=== PATIENT | male | born 1995 | race Caucasian/White ===

== ENCOUNTER 2021-06-18 17:00 | Emergency (ER) | payer OTHER, SELFPAY ==
--- NOTE | ~2021-06-18 | XR_ITS ---
XR abdomen/kub 1V DATE: 06/18/2021 17:55 INDICATION: Costovertebral angle tenderness. Low back pain. TECHNIQUE: AP projection, 2 views COMPARISON: None FINDINGS: No visceromegaly is identified. No abnormal calcification including any apparent urinary tr act calcification is noted. The psoas shadows are intact. There is a prominent amount fecal material in the right colon and sigmoid colon and rectum. No bowel obstruction. IMPRESSION: Nonspecific abdomen; no urinary tract calcification is detected Reviewed, dictated and finalized at [facility]. Reviewed, dictated and finalized at location [facility].
[2021-06-18 17:10] VITALS: BP 157/86; PULSE 80; RESP 20; TEMP 37; O2SAT 100
--- NOTE | 2021-06-18 17:28 | WPDEDEXPGENP ---
HPI - General Ped General Chief complaint: Urogenital-Male Stated complaint: POS UTI Time Seen by Provider: 06/18/21 17:28 Source: patient Mode of arrival: ambulatory Limitations: no limitations Nursing Documentation: reviewed/agree History of Present Illness HPI narrative: 25-year-old male patient presents to the [facility] with complaints of low back pain that started last night. Patient also states he has noticed some foul-smelling urine when he does urinate. Denies any pain with urination. Denies any frequency. Patient does not have any concerns for STD due to that he is in a monogamous relationship with his . Patient denies any blood or discharge coming from the penis. Denies any scrotal pain. Related Data Home Medications Medication Instructions Recorded Confirmed duloxetine 60 mg PO DAILY 06/18/21 06/18/21 fexofenadine [Monserrat] 60 mg PO Q12H 06/18/21 06/18/21 Allergies Allergy/AdvReac Type Severity Reaction Status Date / Time No Known Allergies Allergy Verified 06/18/21 17:22 Pediatric Review of Systems Review of Systems: CONSTITUTIONAL: Denies fever, chills, or sweats. EYES: Denies visual changes, redness, or discharge. ENT: Denies rhinorrhea, congestion, sore throat, or otalgia. CARDIOVASCULAR: Denies chest pain, palpitations, or edema. RESPIRATORY: Denies cough or dyspnea. Positive odor to urine GASTROINTESTINAL: Denies abdominal pain, nausea, vomiting, or diarrhea. GENITOURINARY: Denies dysuria or hematuria. SKIN: Denies rash or itching. MUSCULOSKELETAL: Positive low back pain, denies joint pain, or myalgia. NEUROLOGIC: Denies headache, numbness, or weakness. PSYCHIATRIC: Denies anxiety or depression. [facility] Past Medical History Medical History (Updated 06/18/21 @ 18:15 by RICARDA Corbin) No significant past medical history Obsessive compulsive disorder Seasonal allergies Comments At the time of my signature I agree with nursing past medical history, surgical, social, and family history. There is no relevant family history pertinent to the presenting complaint. Pediatric Exam Narrative: Physical exam: GENERAL: Well-appearing, well-nourished, and in no acute distress. HEAD: Normocephalic, atraumatic. EYES: PERRLA and EOMI. ENT: Nares clear, no rhinorrhea or epistaxis. Mucous membranes moist. NECK: Supple. No lymphadenopathy CHEST: Clear to auscultation. No respiratory distress. HEART: Regular rate and rhythm. No murmur heard. Normal peripheral pulses. ABDOMEN: Soft, nontender, nondistended, normal active bowel sounds. Bilateral CVA tenderness more so on the right than the left EXTREMITIES: Normal range of motion. No edema. SKIN: Warm, dry, no rash. NEURO: No focal deficits. Alert and oriented x3. Course Reevaluation(s) Reevaluation #1: Reevaluated patient notified him that his urine was pretty unremarkable and his x-ray was negative for any obvious kidney stones. Discussed with patient that it does appear that he is got some constipation which we will go ahead and treat him for today. Discussed with him that we will send the urine off for culture and if the culture comes back showing anything concerning we will give him a call otherwise follow-up with his primary doctor if his symptoms continue to worsen. Patient verbalized understanding denies any other questions or concerns at this time. Date: 06/18/21 Time: 18:18 Vital Signs Vital signs: Vital Signs Temperature 37.0 C 06/18/21 17:10 Pulse Rate 80 06/18/21 17:10 Respiratory Rate 20 06/18/21 17:10 Blood Pressure 157/86 H 06/18/21 17:10 Pulse Oximetry 100 06/18/21 17:10 Temperature 37.0 C 06/18/21 17:10 Pulse Rate 80 06/18/21 17:10 Respiratory Rate 20 06/18/21 17:10 Blood Pressure 157/86 H 06/18/21 17:10 Pulse Oximetry 100 06/18/21 17:10 Vital signs reviewed The patient has been informed that they may have pre-hypertension or Hypertension based on a BP reading in the department. I recomme
== END 2021-06-18 18:20 | disposition home or self-care (01) ==
PROVIDERS: Emergency Provider Nurse Practitioner Family; PCP Family Medicine
DX: K59.00 Constipation, unspecified (principal); R82.90 Unspecified abnormal findings in urine
CPT/HCPCS: 74018; 81003; 87086; 99213; G0463

== ENCOUNTER 2024-03-12 19:04 | Emergency (ER) | payer BC, SELFPAY ==
--- NOTE | 2024-03-12 19:06 | ECG_ITS ---
Test Date: 2024-03-12 19:09:34 Measurements Intervals [place] Rate: 75 P: 34 TN: 155 QRS: -18 QRSD: 107 T: 7 QT: 343 QTc: 383 Interpretive Statements SINUS RHYTHM No previous ECG available for comparison Electronically Signed On 03-13-2024 12:39:24 CDT by Vadim Bullock M.D.
[2024-03-12 19:15] VITALS: BP 151/97; PULSE 84; RESP 19; TEMP 36.8; O2SAT 98
[2024-03-12 19:51] LABS: Basophils Absolute Auto 0.1 K/mm3 (0.0-0.1); Basophils Percent Auto 0.6 % (0.2-1.2); Eosinophils Absolute Auto 0.4 K/mm3 (0-0.3); Eosinophils Percent Auto 3.8 % (0-4.4); Hematocrit 44.1 % (42.0-52.0); Hemoglobin 15.2 g/dL (14.0-18.0); Immature Granulocyte Absolute 0.06 K/mm3 (0.00-0.031); Immature Granulocyte Percent A 0.6 % (0-0.5); Lymphocytes Absolute Auto 3.15 K/mm3 (0.9-3.2); Lymphocytes Percent Auto 30.3 % (18.3-44.2); Mean Corpuscular HGB Conc 34.5 g/dl (32-36); Mean Corpuscular Hemoglobin 29.5 pg (26-34); Mean Corpuscular Volume 85.5 fl (80-100); Mean Platelet Volume 9.6 fl (7.4-10.4); Monocytes Absolute Auto 0.7 K/mm3 (0.1-0.6); Monocytes Percent Auto 6.9 % (2.6-8.5); Neutrophils Percent Auto 57.8 % (45.5-73.1); Platelet Count Result 301 k/mm3 (150-375); Red Blood Count 5.16 M/mm3 (4.6-6.20); Red Cell Distribution Width 13.5 % (11.5-14.5); White Blood Count 10.4 K/mm3 (4.5-10.0)
[2024-03-12 20:01] LABS: Alanine Aminotransferase 86 U/L (6-50); Albumin Level 4.9 g/dL (3.5-5.1); Alkaline Phosphatase 59 U/L (38-126); Anion Gap 11 mmol/L (4-12); Aspartate Amino Transferase 61 U/L (17-59); Bilirubin,Total 0.5 mg/dL (0.2-1.3); Blood Urea Nitrogen 18 mg/dL (9-20); Calcium 9.3 mg/dL (8.4-10.2); Carbon Dioxide 24 mmol/L (22-30); Chloride 104 mmol/L (98-107); Estimated CRCL calculation 149 ml/min; Estimated Glomerular Filt Rate > 60; Glucose 116 mg/dL (65-110); Sodium 139 mmol/L (137-145)
--- NOTE | 2024-03-12 20:33 | ED.ARRPALP ---
HPI - Arrhythmia/Palpitations General Chief Complaint: Arrhythmia/Palpitations Stated Complaint: palpatations Time Seen by Provider: 03/12/24 19:19 History of Present Illness HPI narrative: Patient is a 28-year-old male who presents to the emergency department this evening complaining of palpitations which started earlier today. Patient states that throughout the day he has noticed that he has been having these palpitations intermittently, and denies any previous similar symptoms in the past. Patient denies any illicit drug use including marijuana use and denies any current tobacco use, and states that he consumes approximately 200-300 mg of caffeine per day he is currently denying any chest pain or shortness of breath but states that when he had the palpitation episode earlier today he did feel a little bit of shortness of breath. Patient admits to family history of cardiovascular disease, states that his grandfather had a triple bypass. No additional symptoms or concerns at this time. Related Data Home Medications Medication Instructions Recorded Confirmed duloxetine 60 mg capsule,delayed 60 mg PO DAILY 06/18/21 06/18/21 release fexofenadine 60 mg tablet 60 mg PO Q12H 06/18/21 06/18/21 Allergies Allergy/AdvReac Type Severity Reaction Status Date / Time No Known Allergies Allergy Verified 03/12/24 19:07 Review of Systems Review of Systems: All systems are reviewed and are negative unless stated otherwise in the HPI. [facility] Past Medical History Medical History No significant past medical history Obsessive compulsive disorder Seasonal allergies Exam Narrative: General: Alert, awake, afebrile, in no acute distress. HEENT: PERRL, no rhinorrhea, no post nasal drip, oropharynx clear. Cardiovascular: Regular rate and rhythm, no murmurs, rubs or gallops, no peripheral edema. Respiratory: Clear to auscultation bilaterally, no tachypnea, no wheezing, no rhonchi, no rubs, no respiratory distress. Abdomen: Soft, nontender, nondistended, no rebound, no guarding, no peritoneal signs. Musculoskeletal: No joint swelling or deformity, normal muscle tone. Skin: No rashes or petechia, no signs of infection. Neurological: Alert and oriented to person, place, and time. Follows all commands. No focal deficits, speech is clear and fluent. Course Vital Signs Vital signs: Vital Signs Temperature 98.2 F 03/12/24 19:15 Pulse Rate 84 03/12/24 19:15 Respiratory Rate 19 03/12/24 19:15 Blood Pressure 151/97 H 03/12/24 19:15 Pulse Oximetry 98 03/12/24 19:15 Oxygen Delivery Room Air 03/12/24 19:15 Temperature 98.2 F 03/12/24 19:15 Pulse Rate 84 03/12/24 19:15 Respiratory Rate 19 03/12/24 19:15 Blood Pressure 151/97 H 03/12/24 19:15 Pulse Oximetry 98 03/12/24 19:15 Oxygen Delivery Room Air 03/12/24 19:15 MDM - Arrhythmia/Palpitations MDM Narrative Medical decision making narrative: The patient was evaluated by myself in the emergency department. History is obtained from patient who is an independent historian and physical exam was performed. External medical records were reviewed at this time. IV was established and pertinent tests were ordered. EKG was obtained which revealed Sinus rhythm at a rate of 75. No ST changes, T wave inversions or evidence of acute ischemia. EKG was independently interpreted by me and is currently pending official cardiology read. Laboratory results obtained revealed mild transaminitis otherwise unremarkable. Differential diagnosis considerations include dehydration, electrolyte derangements and arrhythmia. Comorbidities impacting this visit include none. I have evaluated and discussed social determinants of health with the patient that could potentially impact subsequent diagnosis and treatment plans. On repeat assessment of the patient, reevaluation revealed that the patient is doi
[2024-03-12 20:55] VITALS: BP 139/91; PULSE 89; RESP 22; O2SAT 95
== END 2024-03-12 20:55 | disposition home or self-care (01) ==
PROVIDERS: Emergency Provider Emergency Medicine; PCP Family Medicine
DX: R00.2 Palpitations (principal)
CPT/HCPCS: 36415; 80053; 83735; 85025; 93005; 99283

== ENCOUNTER 2024-05-26 10:34 | Outpatient (CLI) | payer BC, SELFPAY ==
[2024-05-26 11:35] LABS: Alanine Aminotransferase 124 U/L (6-50); Albumin Level 4.8 g/dL (3.5-5.1); Alkaline Phosphatase 52 U/L (38-126); Anion Gap 12 mmol/L (4-12); Aspartate Amino Transferase 91 U/L (17-59); Bilirubin,Total 0.6 mg/dL (0.2-1.3); Blood Urea Nitrogen 14 mg/dL (9-20); Calcium 9.5 mg/dL (8.4-10.2); Carbon Dioxide 27 mmol/L (22-30); Chloride 100 mmol/L (98-107); Estimated Glomerular Filt Rate > 60; Glucose 91 mg/dL (65-110); Magnesium 2.2 mg/dL (1.6-2.3); Potassium 3.8 mmol/L (3.4-5.0); Sodium 139 mmol/L (137-145)
== END 2024-05-26 10:35 | disposition home or self-care (01) ==
LOC: ANHLAB 10:36
PROVIDERS: PCP Family Medicine; Visit Provider Internal Medicine
DX: R00.2 Palpitations (principal)
CPT/HCPCS: 36415; 80053; 83735; 84443

== ENCOUNTER 2024-11-15 17:33 | Emergency (ER) | payer BC, SELFPAY ==
--- OUTSIDE RECORDS SUMMARY | 2024-11-15 17:37 | XMS_ITS | Clinical Summary ---
Author Organization [facility] Address [address] [place] [address] Phone Care Team Providers Care Slumber Room Attendant Name Role Phone Micky Abel MD Primary Care Provider [phone] Allergies No known active allergies Medications No known medications Encounters Date Type Department Care Team Description 09/05/2024 11:32 PM [facility] - 09/06/2024 2:10 AM [facility]COM[facility] Emergency [facility] Emergency [address] [place] [address] John Palacios MD Chest pain, unspecified type Discharge Disposition: Discharged to home or Selfcare 09/05/2024 Travel from Last 3 Months Social History Tobacco Use Types Packs/Day Years Used Date Smoking Tobacco: Never Smokeless Tobacco: Never Tobacco Cessation:Counseling Given: Not Answered Alcohol Use Standard Drinks/Week Comments Yes 0 (1 standard drink = 0.6 oz pur e alcohol) rarely Sexually Active Control Partners Comments Never Sex and Gender Information Value Date Recorded Sex Assigned at Not on file Legal Sex Male 2:24 AM CDT Gender Identity Not on file Sexual Orientation Not on file Last Filed Vital Signs Vital Sign Reading Time Taken Comments Blood Pressure 123/78 09/06/2024 2:00 AM [facility] Pulse 64 09/06/2024 2:00 AM [facility] Temperature 36.4 C (97.5 F) 09/05/2024 10:55 PM [facility] Respiratory Rate 15 09/06/2024 2:00 AM [facility] Oxygen Saturation 96% 09/06/2024 2:00 AM [facility] Inhaled Oxygen Concentration - - Weight 127 kg (280 lb) 09/05/2024 10:55 PM [facility] Height 180.3 cm (5' 11 ) 09/05/2024 10:55 PM [facility] Body Mass Index 39.05 09/05/2024 10:55 PM [facility] Plan of Treatment Health Maintenance Due Date Last Done Comments Hepatitis C Virus (HCV) Screening 1994 Hepatitis B Immunization (1 of 3 - 19+ 3-dose series) 2013 Influenza Immunization (#1) 06/01/2024/12/2022, 07/22/2019, 06/20/2018 SARS-COV-2 Immunization ( - season) 2024 02/04/2021 Respiratory Syncytial Virus (RSV) Immunization (Adult) (1 - 1-dose 75+ series) 2069 TdaP Immunization Completed 07/21/2019 Meningococcal Immunization (ACWY) Aged Out No longer eligible b ased on patient's age to complete this topic Pneumococcal Immunization Combined Aged Out No longer eligible b ased on patient's age to complete this topic Rotavirus Immunization Aged Out No lo nger eligible based on patient's age to complete this topic Procedures Procedure Name Priority Date/Time Associated Diagnosis Comments XR CHEST 2 VIEWS STAT 09/05/2024 11:3 4 PM [facility] CBC WITH AUTO DIFFERENTIAL STAT 09/05/2024 11:03 PM [facility] TROPONIN I, HIGH SENSITIVITY (HSTRP) STAT 09/05/2024 11:03 PM [facility] CMP (COMPREHENSIVE METABOLIC PANEL) STAT 09/05/2024 11:03 PM [facility] COMPLETE BLOOD COUNT (CBC) WITH DIFF STAT 09/05/2024 11:03 PM [facility] EKG 12 LEAD STAT 09/05/2024 10:57 PM [facility]COM[facility] from Last 3 Months Results * XR CHEST 2 VIEWS (09/05/2024 11:34 PM [facility]COM[facility]) Anatomical Region Laterality Modality Chest N/A Digital Radiogra phy 09/05/2024 11:5 9 PM [facility] Impressions 09/06/2024 12:18 AM [facility] IMPRESSION: Unremarkable chest radiographs. Narrative 09/06/2024 12:18 AM [facility] EXAM DESCRIPTION: XR CHEST 2 VIEWS REASON FOR STUDY: Chest pain TECHNIQUE: Frontal and lateral views of the chest. COMPARISON: None FINDINGS: LUNGS AND PLEURA: No focal airspace opacity, pleural effusion, or pneumothorax identified. HEART/MEDIASTINUM: Trachea midline. Cardiac silhouette normal in size. Mediastinal contours appear normal. BONES: Unremarkable. CHEST WALL: Unremarkable. UPPER ABDOMEN: Unremarkable. THIS IS AN ELECTRONICALLY VERIFIED FINAL REPORT 09/05/2024 11:59 PM - Electronically signed by Hasmukh Tran M.D. AR: FEI Report ID: [id number] Reading Location: [id number] Procedure Note Hasmukh Tran MD - 09/06/2024 EXAM DESCRIPTION: XR CHEST 2 VIEWS REASON FOR STUDY: Chest pain TECHNIQUE: Frontal and lateral views of the chest. COMPARISON: None FINDINGS: LUNGS AND PLEURA: No focal airspace opacity, pleural effusion, or pneumothorax identified. HEART/MEDIASTINUM: Trachea midline. Cardiac silhouette normal in size. Mediastinal contours appear normal. BONES: Unremarkable. CHEST WALL: Unremarkable. UPPER ABDOMEN: Unremarkable. THIS IS AN ELECTRONICALLY VERIFIED FINAL REPORT 09/05/2024 11:59 PM - Electronically signed by Hasmukh Tran M.D. AR: FEI Report ID: [id number] Reading Location: [id number] IMPRESSION: Unremarkable chest radiographs. us John Palacios MD [facility] ORDERABLES Final Result * TROPONIN I, HIGH SENSITIVITY (HSTRP) (09/05/2024 11:03 PM [facility]) TROPONIN I, HIGH SENSITIVITY- CYR <3 <=35 ng/L 09/05/2024 11:38 PM [facility] Comment: High-sensitivity troponin I results are reported in ng/L making the result appear to be 1,000 times higher than the contemporary troponin I value which is reported in ng/ml. Results from Amanda Huff [facility]. Blood Venipuncture / Unknown 09/05/2024 11:03 PM [facility] 09/05/2024 11:09 PM [facility] John Palacios MD CHEMISTRY ORDERABLES Final Result [facility] [address] [place] [address] * (ABNORMAL) CBC with Auto Differential (09/05/2024 11:03 PM [facility]COMES) WBC 11.08 4.00 - 12.00 10(3)/mcL 09/05/2024 11:12 PM [facility] RBC 5.18 4.40 - 5.80 10(6)/mcL 09/05/2024 11:12 PM [facility] HEMOGLOBIN (HGB) 15.0 13.0 - 16.5 g/dL 09/05/2024 11:12 PM [facility] HEMATOCRIT (HCT) 44.9 38.0 - 50.0 % 09/05/2024 11:12 PM [facility] MCV 86.7 82.0 - 96.0 fL 09/05/2024 11:12 PM [facility] MCH 29.0 26.0 - 32.0 pg 09/05/2024 11:12 PM [facility] MCHC 33.4 31.0 - 36.0 g/dL 09/05/2024 11:12 PM [facility] PLATELET COUNT 299 140 - 440 10(3)/mcL 09/05/2024 11:12 PM [facility] RDW 13.5 11.8 - 15.5 % 09/05/2024 11:12 PM [facility] MPV 9.8 8.0 - 12.6 fL 09/05/2024 11:12 PM [facility] NEUTROPHILS 60.8 40.0 - 68.0 % 09/05/2024 11:12 PM [facility] LYMPHOCYTES 27.4 19.0 - 49.0 % 09/05/2024 11:12 PM [facility] MONOCYTES 5.9 3.0 - 13.0 % 09/05/2024 11:12 PM [facility] EOSINOPHILS 5.1 0.0 - 8.0 % 09/05/2024 11:12 PM [facility] BASOPHILS 0.8 0.0 - 1.0 % 09/05/2024 11:12 PM [facility] ABSOLUTE NEUTROPHILS 6.73(H) 1.40 - 5.30 10(3)/[facility] 09/05/2024 11:12 PM [facility] ABSOLUTE LYMPHOCYTES 3.04 0.90 - 3.30 10(3)/[facility] 09/05/2024 11:12 PM [facility] ABSOLUTE MONOCYTES 0.65 0.10 - 0.90 10(3)/[facility] 09/05/2024 11:12 PM [facility] ABSOLUTE EOSINOPHIL 0.57(H) 0.00 - 0.50 10(3)/[facility] 09/05/2024 11:12 PM [facility] ABSOLUTE BASOPHILS 0.09 0.00 - 0.10 10(3)/[facility] 09/05/2024 11:12 PM [facility] NRBC PER 100 WBC 0 09/05/20 24 11:12 PM [facility] Blood Venipuncture / Unknown 09/05/2024 11:03 PM [facility] 09/05/2024 11:09 PM [facility] us John Palacios MD HEMATOLOGY ORDERABLES Angelita marija Result [facility] [address] [place] [address] * (ABNORMAL) Comprehensive Metabolic Panel (Cmp) [id number] (09/05/2024 11:03 PM [facility]ES) Pathologist [facility] SODIUM 140 136 - 145 mmol/L 09/05/2024 11:33 PM [facility] POTASSIUM 3.6 3.5 - 5.1 mmol/L 09/05/2024 11:33 PM [facility] CHLORIDE 105 98 - 107 mmol/L 09/05/2024 11:33 PM [facility] CO2, VENOUS 22 22 - 30 mmol/L 09/05/2024 11:33 PM [facility] ANION GAP 16.6 <18.0 mmol/L 09/05/2024 11:33 PM [facility] GLUCOSE 104(H) 70 - 99 mg/dL 09/05/2024 11:33 PM [facility] BUN 12 9 - 21 mg/dL 09/05/2024 11:33 PM [facility] CREATININE, BLOOD 0.87 0.70 - 1.30 mg/dL 09/05/2024 11:33 PM [facility] BUN/CREATININE RATIO 14 12 - 20 ratio 09/05/2024 11:33 PM [facility] TOTAL PROTEIN 7.6 6.3 - 8.2 g/dL 09/05/2024 11:33 PM [facility] ALBUMIN 4.6 3.5 - 5.0 g/dL 09/05/2024 11:33 PM [facility] A/G RATIO 1.5 1.0 - 2.2 09/05/2024 11:33 PM [facility] CALCIUM 10.0 8.7 - 10.5 mg/dL 09/05/2024 11:33 PM [facility] T BILI 0.4 0.2 - 1.2 mg/dL 09/05/2024 11:33 PM [facility] SGOT (AST) 88(H) 5 - 34 U/L 09/05/2024 11:33 PM [facility] SGPT (ALT) 114(H) 0 - 55 U/L 09/05/2024 11:33 PM [facility] ALKALINE PHOSPHATASE 53 40 - 150 U/L 09/05/2024 11:33 PM [facility] GFR, ESTIMATED >60 >=60 09/05/2024 11:33 PM [facility] OUTCOMES [facility] Comment: Creatinine Clearance is the preferred criteria for selecting drug dose adjustments in renally impaired patients. The GFR is provided as additional pertinent clinical information. GFR is reported in mL/min/1.73 sq m. Calculation based on the Chronic Kidney Disease Epidemiology Collaboration (CKD- EPI) equation refit without adjustment for race. GFR, EST. >60 >=60 024 11:33 PM [facility] OUTCOMES [facility] GFR, EST. NONAFRICAN >60 >=60 09/05/2024 11:33 PM [facility] OUTCOM[facility] Blood Venipuncture / Unknown 09/05/2024 11:03 PM [facility] 09/05/2024 11:09 PM [facility] OUTCOMES John Palacios MD CHEMISTRY ORDERABLES Final Result [facility] [address] [place] [address] * EKG 12 LEAD (09/05/2024 10:57 PM [facility] OUTCOMES) Ventricular Rate 68 BPM EXTERNAL EKG Atrial Rate 68 BPM EXTERNAL EKG P-R Interval 164 ms EXTERNAL EKG QRS Duration 110 ms EXTERNAL EKG Q-T Duration 390 ms EXTERNAL EKG QTC CALCULATION 414 ms EXTERNAL EKG P Rosalie 30 degrees EXTERNAL EKG R Rosalie -6 degrees EXTERNAL EKG T Rosalie 3 degrees EXTERNAL EKG 09/05/2024 10:5 7 PM [facility] OUTCOMES Impressions EXTERNAL EKG - 09/08/2024 10:17 PM [facility]COMES Normal sinus rhythm Normal ECG No previous ECGs available Confirmed by Daryn Gillespie ([id number]) on 09/08/2024 10:17:22 PM Narrative Procedure Note Daryn Gillespie MD PhD - 09/08/2024 IMPRESSION: Normal sinus rhythm Normal ECG No previous ECGs available Confirmed by Daryn Gillespie ([id number]) on 09/08/2024 10:17:22 PM John Palacios MD IMG ECG ORDERABLES Final R esult EXTERNAL EKG from Last 3 Months Insurance Care Teams Slumber Room Attendant Relationship Specialty Start Date End Date Micky Abel MD [id number] [place] [address] [place] [id number] PCP - General Family Medicine 03/31/23
--- OUTSIDE RECORDS SUMMARY | 2024-11-15 17:37 | XMS_ITS | Continuity of Care Document ---
Author Organization [facility] Address [address] [place] [address] Phone Care Team Providers Care Principal Examiner Name Role Phone Conversion MD, Doctor Unavailable Unavailabl e Medications Medication Instructions Dosage Effective Dates (start - stop) Status Comments OMNARIS 50 MCG NASAL SPRAY 2 QD-daily - Active OMNARIS 50MCG SPRAY(S) 2 QD-daily - No Longer Active Advance Directives Directive Yes / No Effective Date File Name No Information Encounters Encounter Description Practice Location Reason(s) For Visit Diagnoses Date Provider Providers Copied on Encounter [facility], [address], [place], [place], [id number], tel:[phone] Conversion Department No Information 1 Conversion Doctor. [address] [place] [address], [address], . [facility], [address], [place], [place], [id number], tel:[phone] [facility] NEC [address]. [address], [id number], . tel:[phone] Family History Family Member Type Diagnosis Age At Onset No Information Payers Payer name Insurance type Covered alliance party ID Authoriza tion(s) No Information Social History Type Description Quantity Date Captured Comments Sex Male Smoking Status No Information Chief Complaint And Reason For Visit No Information Reason For Referral Reason For Referral No Information History Of Present Illness Encounter Date Complaint History Of Prese nt Illness No Information Functional Status Date Functional Assessmen t No Information Instructions Date Instruction Additional Infor mation No Information Assessments Type Assessment Date No Information Patient Care Teams Name Effective Dates (start - stop) Status Members No Information
--- OUTSIDE RECORDS SUMMARY | 2024-11-15 17:37 | XMS_ITS | Referral Summary ---
Author Organization [facility] at [facility] Address [address] [place] [address] Care Team Providers Care Principle Software Engineer Name Role Phone Micky Abel MD Primary Care Provider [phone] Reggie Aguirre MD Unavailable [phone] Allergies No known active allergies Medications fexofenadine (CRISTIN) 180 mg tablet 1 tablet (180 mg total) daily Active albuterol HFA (PROVENTIL HFA,VENTOLIN HFA,PROAIR HFA) 90 mcg/actuation inhaler Inhale 2 puffs every 6 (six) hours as needed for wheezing 1 each 3 10/04/2022 Active montelukast (SINGULAIR) 10 mg tablet Take 1 tablet (10 mg total) by mouth nightly 90 tablet 3 01/18/2024 01/13/[address] (CYMBALTA) 60 mg capsule Take 1 capsule (60 mg total) by mouth daily 90 capsule 3 01/18/2024 Active Active Problems Problem Noted Date Diagnosed Date Palpitations 05/26/2024 Chronic insomnia 07/18/2021 Seasonal allergies 01/12/2021 KEILA (obstructive sleep apnea) 07/12/2020 Recurrent major depressive d isorder, in full remission (CMS/HCC) 07/09/2019 Moderate persistent asthma 02/03/2019 Non-smoker 02/03/2019 Vitamin D deficiency, unspecified 12/12/2018 Chronic rhinitis 04/02/2017 Resolved Problems Problem Noted Date Diagnosed Date Resolved Date Right foot pain 05/17/2023 01/18/2024 Assessment & Plan (05/17/2023 3:19 PM CDT): History and exam not c/w DVT or arterial thrombus - foot well profused on examination; likely soft tissue injury resulting in bruising/hematoma. Will get repeat foot xray. Records requested from urgent care. Continue RICE treatment. Consider podiatry/ortho referral - will await xray results. Abnormal urine odor 07/18/2021 01/18/20 24 Right hand pain 05/25/2021 01/18/2024 Abnormal findings in stool 07/12/2020 0 01/18/2024 Overview (07/12/2020): stool for C and S O and P, WBC Fatigue 07/12/2020 01/18/2024 Overview (07/12/2020): order labs TSH/ B12 Wheezing 02/03/2019 07/09/2019 Snoring 02/03/2019 07/12/2020 Mass of left testicle 01/28/20192018 Asthma 12/12/2018 07/09/2019 Other specified anxiety disorders 09/05/2018 07/09/2019 Immunizations Name Administration Dates Next Due Influenza, Quadrivalent, Spl it, Preservative Free, Intramuscular 10/04/2022,07/22/2019,06/20/2018 Influenza, Unspecified 07/01/2023(Deferr ed: Patient Refused),10/01/2021(Deferred: Patient Refused) Rabies Human Diploid IM Vaccine 07/21/2019 Tdap 07/21/2019 Social History Tobacco Use Types Packs/Day Years Used Date Smoking Tobacco: Never Smokeless Tobacco: Never Tobacco Cessation:Counseling Given: Not Answered Alcohol Use Standard Drinks/Week Comments Not Currently 0 (1 standard drink = 0.6 oz pur e alcohol) AUDIT-C Answer Date Recorded Q1: How often do you have a drink containing alc ohol? Monthly or less 01/18/2024 Q2: How many drinks containi ng alcohol do you have on a typical day when you are drinking? 1 or 2 01/18/2024 Q3: How often do you have si x or more drinks on one occasion? 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 Gender Identity Not on file Sexual Orientation Choose not to disclose 2023 11:30 AM CDT Last Filed Vital Signs Vital Sign Reading Time Taken Comments Blood Pressure 149/96 06/10/2024 9:15 AM CDT Pulse 72 05/26/2024 9:18 AM CDT Temperature 36.6 C (97.8 F) 05/17/2023 2:48 PM CDT Respiratory Rate 18 07/18/2021 2:21 PM CDT Oxygen Saturation 98% 05/26/2024 9:18 AM CDT Inhaled Oxygen Concentration - - Weight 133.8 kg (295 lb) 05/26/2024 9:18 AM CDT Height 180.3 cm (5' 11 ) 05/26/2024 9:18 AM CDT Body Mass Index 41.14 05/26/2024 9:18 AM CDT Plan of Treatment Not on file Insurance [facility] [employer] Care Teams Principle Software Engineer Relationship Specialty Start Date End Date Micky Abel MD PCP - General Family Medicine 12/23/18 Reggie Aguirre MD [address] [facility] [address] [address] Consulting Physician Pulmonary Disease 01/31/19
--- OUTSIDE RECORDS SUMMARY | 2024-11-15 17:37 | XMS_ITS | Clinical Summary ---
Author Organization [facility] Address [address] [place] [address] Care Team Providers Care Shipyard Helper Name Role Phone Micky Abel MD Primary Care Provider [phone] Reggie Aguirre MD Unavailable [phone] Allergies No known active allergies Medications fexofenadine [...] Human Diploid IM Vaccine 07/21/2019 Tdap 07/21/2019 Medical History Medical History Date Comments Nervousness Asthma Depression Family History Medical History Relation Name Comments No Known Problems Brother No Known Problems Father No Known Problems Maternal Grandfather No Known Problems Maternal Grandmother No Known Problems Mother Alzheimer's disease Other Diabetes Other Diabetes Paternal Grandfather No Known Problems Paternal Grandmother Relation Name Status Comments Brother Alive Father Alive Maternal Grandfather Alive Maternal Grandmother Alive Mother Alive Other Paternal Grandfather Paternal Grandmother Social History Tobacco Use Types Packs/Day Years [...] on file 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 Gender Identity Not on file Sexual Orientation Choose not to disclose 2023 11:30 AM CDT Obstetrics History Last Filed Vital Signs Vital Sign Reading [...] 05/26/2024 9:18 AM CDT Plan of Treatment Health Maintenance Due Date Last Done Comments Hepatitis C Screening 1994 Pneumococcal vaccine <65 (1 of 2 - PCV) 2000 Varicella Vaccines (1 of 2 - 13+ 2-dose series) 2007 Hepatitis B Screening 2012 Regular Well Visit/Exam 18-64 2012 Covid-19 Vaccine (2 - season) 2024 02/04/2021 Influenza Vaccine (#1) 2024 3, 07/22/2019, 06/20/2018 Depression Screening 01/17/2025 01/18/2024, 10/04/2022, 07/18/2021, Additional history exists DTaP/Tdap/Td Vaccine (2 - Td or Tdap) 07/21/2029 07/21/2019 HPV Vaccines Aged Out No longer eligi ble based on patient's age to complete this topic Insurance [facility] FEDERAL Care Teams Shipyard Helper Relationship Specialty Start Date End Date Micky Abel MD PCP - General Family Medicine 12/23/18 Reggie Aguirre MD [address] [facility] [place] [address] Consulting Physician Pulmonary Disease 01/31/19
--- OUTSIDE RECORDS SUMMARY | 2024-11-15 17:37 | XMS_ITS | Continuity of Care Document ---
Author Organization [facility] Address [address] [place] [address] Phone Care Team Providers Care Teaseler Name Role Phone Sacha Carrera Unavailable Unavailable Advance Directives Directive Yes / No Effective Date File Name No Information Encounters Encounter Description Practice Location Reason(s) For Visit Diagnoses Date Provider Providers Copied on Encounter [facility], [address] [place] [address], [facility], tel:[phone] *[facility] No Information Deandre Goncalves. [address] [place] [address], [facility], . tel:[phone] Family History Family Member Type Diagnosis Age At Onset No Information Payers Payer name Insurance type Covered green party ID Authoriza tion(s) No Information Social [...]
--- OUTSIDE RECORDS SUMMARY | 2024-11-15 17:43 | XMS_ITS | Continuity of Care Document ---
Author Organization [facility] Address [address] [place] [address] Phone Care Team Providers Care Clutch Inspector Name Role Phone Sacha Carrera Unavailable Unavailable Advance Directives Directive Yes / No Effective Date File Name No Information Encounters Encounter Description Practice Location Reason(s) For Visit Diagnoses Date Provider Providers Copied on Encounter [facility], [address] [place] [address], [facility], tel:[phone] *[facility] No Information Deandre Goncalves. [address] [place] [address], [facility], . tel:[phone] Family History Family Member Type Diagnosis Age [...]
--- OUTSIDE RECORDS SUMMARY | 2024-11-15 17:43 | XMS_ITS | Continuity of Care Document ---
Author Organization [facility] Address [address] [place] [address] Phone Care Team Providers Care Director Product Development Name Role Phone Conversion MD, Doctor Unavailable [...] Diagnoses Date Provider Providers Copied on Encounter [facility], [address], [place], [place], [id number], tel:[phone] Conversion Department No Information 1 Conversion Doctor. [address] [place] [address], [address], . [employer] [facility], [address], [place], [place], [id number], tel:[phone] [facility] [address]. [address], [id number], . tel:[phone] Family History Family Member Type Diagnosis Age At Onset No Information Payers Payer name Insurance type Covered libertarian ID Authoriza tion(s) No Information Social History [...]
[2024-11-15 17:47] VITALS: BP 143/78; PULSE 97; RESP 16; TEMP 37.7; O2SAT 98
--- NOTE | 2024-11-15 19:09 | ED_ITS ---
HPI - General Adult General Chief complaint: Upper Respiratory Infection Stated complaint: flu/strep exp cough,congestion Source: patient Mode of arrival: ambulatory Limitations: no limitations History of Present Illness HPI narrative: Patient presents for evaluation of sick symptoms for the last 5 days. Symptoms include hot flashes, chills, cough, shortness of breath, pleuritic chest pain, headache, sinus congestion, postnasal drainage and sore throat. His son tested positive for strep and influenza. He has been taking Tylenol for symptoms. He does not smoke. Related Data Home Medications ?Medication ?Instructions ?Recorded ?Confirmed ?Last Taken ?Type duloxetine 60 mg capsule,delayed 60 mg PO DAILY 06/18/21 06/18/21 Unknown History release fexofenadine 60 mg tablet 60 mg PO Q12H 06/18/21 06/18/21 Unknown History albuterol 90 mcg/actuation aerosol 90 mcg inhalation Q4-6H PRN 11/15/24 Unknown History inhaler shortness of breath or wheezing montelukast 10 mg tablet mg 11/15/24 Unknown History Allergies Allergy/AdvReac Type Severity Reaction Status Date / Time No Known Allergies Allergy Verified 11/15/24 17:56 Review of Systems Review of Systems: CONSTITUTIONAL: Reports hot flashes and chills. EYES: Denies visual changes, redness, or discharge. ENT: Reports sinus congestion, postnasal drainage, sore throat CARDIOVASCULAR: Denies chest pain, palpitations, or edema. RESPIRATORY: Reports cough, shortness of breath, pleuritic chest pain GASTROINTESTINAL: Denies abdominal pain, nausea, vomiting, or diarrhea. GENITOURINARY: Denies dysuria or hematuria. SKIN: Denies rash or itching. MUSCULOSKELETAL: Denies back pain, joint pain, or myalgia. NEUROLOGIC: Reports headache. Denies numbness, dizziness, or weakness. PSYCHIATRIC: Denies anxiety or depression. [facility] Past Medical History Medical History Obsessive compulsive disorder Seasonal allergies No significant past medical history Surgical History Surgical History No pertinent past surgical history Family History Family History Mother Medical history non-contributory Social History Social History (Reviewed 11/15/24 @ 19:12 by Tenzin Perez, [facility] [place]) Smoking status: Never smoker Substance use: never Living arrangements: with family Gender identity (if verbalized by the patient): Male Sexual Orientation (if Verbalized by the Patient): Straight or Heterosexual Spiritual care concerns: No Exam Narrative: GENERAL: Well-appearing, well-nourished, and in no acute distress. HEAD: Normocephalic, atraumatic. EYES: PERRLA and EOMI. ENT: Nares clear, no rhinorrhea or epistaxis. Mucous membranes moist. Oropharynx without tonsillar hypertrophy exudate or other lesions. Bilateral TMs pearly sifuentes nonbulging NECK: Supple. No adenopathy or masses. No carotid bruits or JVD CHEST: Wheezing noted in bilateral lung mckeon. Cough present on exam. HEART: Regular rate and rhythm. No murmur heard. Normal peripheral pulses. ABDOMEN: Soft, nontender, nondistended, normal active bowel sounds. EXTREMITIES: Normal range of motion. No edema. SKIN: Warm, dry, no rash. NEURO: No focal deficits. Alert and oriented x3. PSYCH: Normal mood and affect. Course Course Emergency Course: This is a 29-year-old male who presented for evaluation of sick symptoms after exposures to strep and influenza. We discussed treatment options. He would like to be treated for strep due to recent contact in the setting of active sore throat. His influenza a test is positive. While he may be outside the window to initiate Tamiflu, his initial symptoms may be related to strep with other symptoms associated with flu starting later. We agreed to also treat with Tamiflu. He has tolerated prednisone well in the past. We will provide him with a prescription for this as well. He has an albuterol inhaler at home. He should follow-up with his primary care provider and go to the emergency department for worsening symptoms. Patient in agreement with plan care. Level of Care: Express Care Visit Vital Signs Vital signs: Vital Signs Temperature 37.7 C H 11/15/24 17:47 Pulse Rate 97 11/15/24 17:47 Respiratory Rate 16 11/15/24 17:47 Blood Pressure 143/78 H 11/15/24 17:47 Pulse Oximetry 98 11/15/24 17:47 Oxygen Delivery Room Air 11/15/24 17:47 Temperature 37.7 C H 11/15/24 17:47 Pulse Rate 97 11/15/24 17:47 Respiratory Rate 16 11/15/24 17:47 Blood Pressure 143/78 H 11/15/24 17:47 Pulse Oximetry 98 11/15/24 17:47 Oxygen Delivery Room Air 11/15/24 17:47 Medical Decision Making Vital Signs Vital Signs: Vital Signs Temperature 37.7 C H 11/15/24 17:47 Pulse Rate 97 11/15/24 17:47 Respiratory Rate 16 11/15/24 17:47 Blood Pressure 143/78 H 11/15/24 17:47 Pulse Oximetry 98 11/15/24 17:47 Oxygen Delivery Room Air 11/15/24 17:47 Temperature 37.7 C H 11/15/24 17:47 Pulse Rate 97 11/15/24 17:47 Respiratory Rate 16 11/15/24 17:47 Blood Pressure 143/78 H 11/15/24 17:47 Pulse Oximetry 98 11/15/24 17:47 Oxygen Delivery Room Air 11/15/24 17:47 Discharge Plan Discharge Clinical Impression: Exposure to strep throat, Influenza A Patient Disposition: Home, Self-Care Condition: Stable Instructions: Antibiotic Form, Pleurisy (ED), Pharyngitis (ED), Influenza (ED) Patient Language: Nigerian Prescriptions: New amoxicillin-pot clavulanate 875-125 mg tablet 1 tablet PO Q12H Qty: 20 0RF prednisone 50 mg tablet 50 mg PO DAILY Qty: 5 0RF oseltamivir [Tamiflu] 75 mg capsule 75 mg PO Q12H 5 Days Qty: 10 0RF No Action fexofenadine [Monserrat] 60 mg Tablet 60 mg PO Q12H duloxetine 60 mg Capsule,Delayed Release(Dr/Ec) 60 mg PO DAILY montelukast 10 mg tablet albuterol 90 mcg/actuation aerosol 90 mcg inhalation Q4-6H PRN (Reason: shortness of breath or wheezing) Follow-up/Referrals: Colten,Micky Ramirez MD [Primary Care Provider] - Time of Disposition: 19:08
[2024-11-15 19:54] LABS: EDCOVIDSCREEN Negative (Negative); EDINFLUASCREEN Positive (Negative); EDINFLUBSCREEN Negative (Negative); EDSTREPNEGPOS1 Negative (Negative)
== END 2024-11-15 19:10 | disposition home or self-care (01) ==
PROVIDERS: Emergency Provider Nurse Practitioner; PCP Family Medicine
DX: J10.1 Influenza due to other identified influenza virus with other respiratory manifestations (principal); Z20.822 Contact with and (suspected) exposure to COVID-19
CPT/HCPCS: 87081; 87426; 87804; 87880; 99213; G0463